=== PATIENT | female | born 1985 | race Caucasian/White ===

== ENCOUNTER 2017-05-04 15:26 | Emergency (ER) | payer OTHER, MEDICAID ==
[2017-05-04] MEDS ORDERED: TORADOL IM ONE (19:41)
[2017-05-04] MEDS ORDERED: FLEXERIL PO ONE (19:41)
[2017-05-04] MEDS ORDERED: TORADOL ONE (19:57)
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
[2017-05-04 22:40] VITALS: BP 130/90
== END 2017-05-04 22:40 | disposition home or self-care (01) ==
LOC: ED 15:26
DX: S16.1XXA Strain of muscle, fascia and tendon at neck level, initial encounter (principal); S39.012A Strain of muscle, fascia and tendon of lower back, initial encounter; J45.909 Unspecified asthma, uncomplicated; F17.200 Nicotine dependence, unspecified, uncomplicated; V49.49XA Driver injured in collision with other motor vehicles in traffic accident, initial encounter; Y93.9 Activity, unspecified; Y92.9 Unspecified place or not applicable; Y99.9 Unspecified external cause status
CPT/HCPCS: 71010; 72040; 81025; 96372; 99284; J1885

== ENCOUNTER 2018-05-06 16:20 | Emergency (ER) | payer MEDICAID ==
[2018-05-06] MEDS ORDERED: BOOSTRIX IM ONE (18:41)
[2018-05-06] MEDS ORDERED: MOTRIN PO ONE (18:41)
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
--- NOTE | 2018-05-06 21:19 | XRay Report ---
FINAL REPORT EXAM: XR FINGER(S) 2+V LT HISTORY: left finger pain TECHNIQUE: Frontal, lateral, oblique views left 4th finger Comparison: None FINDINGS: There is a comminuted, angulated and displaced fracture of the proximal epiphysis, metaphysis and diaphysis of the middle phalanx of the 4th finger. This involves at least 50 percent of the articular surface. There is associated soft tissue swelling. IMPRESSION: 1. Comminuted, angulated and displaced fracture proximal epiphysis, metaphysis and diaphysis of the middle phalanx 4th finger with articular surface involvement.
[2018-05-06 22:46] VITALS: BP 120/79
== END 2018-05-06 22:47 | disposition home or self-care (01) ==
LOC: ED 16:20
DX: S62.625A Displaced fracture of middle phalanx of left ring finger, initial encounter for closed fracture (principal); J45.909 Unspecified asthma, uncomplicated; F17.200 Nicotine dependence, unspecified, uncomplicated; W22.8XXA Striking against or struck by other objects, initial encounter; Y93.89 Activity, other specified; Y92.89 Other specified places as the place of occurrence of the external cause; Y99.8 Other external cause status
CPT/HCPCS: 90471; 90715